=== PATIENT | male | born 1985 | race Caucasian/White ===

== ENCOUNTER 2021-02-14 01:53 | Outpatient (CLI) | payer MEDICAID, SELFPAY ==
--- NOTE | 2021-02-14 | DI.RAD_ITS ---
Exam(s) XR LUMBAR SPINE COMPLETE EXAM: XR LUMBAR SPINE COMPLETE CLINICAL HISTORY: LOW BACK PAIN, M54.5. TECHNIQUE: 2D digital imaging was performed. COMPARISON: No exams were available for comparison FINDINGS: There is no evidence of fracture, listhesis, or pars interarticularis defects. All the disc spaces e xhibit normal height. No scoliosis. Bone density normal. No osseous lesions. No obvious facet art hropathy. Sacroiliac joints appear unremarkable. IMPRESSION: No significant radiograph findings in the lumbosacral spine. DATA REPOSITORY: RADIATION DOSE DELIVERED:
--- NOTE | 2021-02-14 | DI.RAD_ITS ---
Exam(s) XR THORACIC SPINE COMPLETE EXAM: XR THORACIC SPINE COMPLETE CLINICAL HISTORY: THORACIC BACK PAIN, M54.9. TECHNIQUE: 2D digital imaging was performed. COMPARISON: No exams were available for comparison FINDINGS: There is no evidence of fracture nor listhesis. No scoliosis. No abnormal widening of the paraspina l lines. There is multilevel mild anterior osseous lipping but no prominent disc space narrowing. B one density is age-appropriate. No osseous lesions evident. IMPRESSION: No significant radiographic findings. No scoliosis. DATA REPOSITORY: RADIATION DOSE DELIVERED:
== END 2021-02-14 02:13 ==
PROVIDERS: Visit Provider Physician Assistant
DX: M54.6 Pain in thoracic spine (principal); M54.5 Low back pain
CPT/HCPCS: 72072; 72110

== ENCOUNTER 2023-05-28 07:50 | Emergency (ER) | payer MEDICAID, SELFPAY ==
[2023-05-28 07:52] VITALS: BP 139/82; PULSE 96; RESP 16; TEMP 37.1; O2SAT 99
[2023-05-28] MEDS: Ketorolac 15 MG/ML VIAL IM (08:15)
--- NOTE | 2023-05-28 08:36 | DI.RAD_ITS ---
Exam(s) XR FOOT RT COMPLETE EXAM: XR FOOT RT COMPLETE CLINICAL HISTORY: kicked dumpster, pain medial foreft c inversion. TECHNIQUE: 2D digital imaging was performed of the right foot. Three images were obtained. AP, obl ique and lateral views were obtained. COMPARISON: No exams were available for comparison FINDINGS: BONES: No acute fracture is present. No bony destructive lesion is seen. JOINTS: No dislocation present. SOFT TISSUE: Normal. IMPRESSION: Unremarkable radiographs of the right foot. DATA REPOSITORY: RADIATION DOSE DELIVERED:
--- NOTE | 2023-05-28 08:47 | ED.GENADUL_ITS ---
Discharge Plan Disposition Patient Disposition: Home Condition: Good Discharge Details Clinical Impression: Sprain Primary Care Provider: None,None ED Provider: Adore Larios Home Meds and New Rx's Prescriptions: No Action No Known Home Meds Discharge Instructions Instructions: Foot Sprain (ED) Additional Instructions: Take tylenol and ibuprofen over the counter as needed for pain. You can also use ice. Wear the foot immoblizer until your pain improves. Call your primary care doctor today to schedule an appointment to follow up on your visit here. Return to the emergency department for new or worsening symptoms. Stand Alone Forms: Work Release Referrals: Nia Mc [Emergency Nurse] - Medical Decision Making 37yo previously healthy male presenting with right foot pain after kicking dumpster. No numbness or tingling. Able to ambulate immediately afterwards but not current; has not taken OTC medications. Vital signs and physical exam reassuring, neurovascular intact, low suspicion for fracture but will eval with XR. Givem IM toradol for pain. XR independently reviewed, no displaced fracture on my view, agree with radiology read below. Placed in walking boot and dced home. Discharged home; discharge instructions including return precautions were reviewed with patient who verbalized understanding. All questions were answered and they are in full agreement with the plan. Imaging Data Radiologic Study: Imaging: X-Ray Radiologist's impression: IMPRESSION: Unremarkable radiographs of the right foot. HPI General Mode of arrival: ambulatory . Date/Time Provider Initiated Documentation: 05/28/23 08:03 . Limitations to Documentation: no limitations . Information obtained by: patient . HPI Narrative: 37yo previously healthy male presenting with right foot pain. Yesterday evening attempted to kick a raccoon, missed, and kicked dumpster. Able to walk after the event. Worsening right foot pain since then, now with difficutly ambulating. No numbness or tingling. Has been using ice at home, no OTC medications. He is otherwise in his usual state of health. Unsure last tetanus. Related Data Home Medications Medication Instructions Recorded Confirmed Unknown [No Known Home Meds] 05/28/23 05/28/23 Allergies Allergy/AdvReac Type Severity Reaction Status Date / Time No Known Allergies Allergy Unverified 05/28/23 07:57 General Stated Complaint: Orthopedic NICK: 4 Review of Systems Narrative: see HPI PFSH All Active Problems (Updated 05/28/23 @ 08:56 by Adore Larios MD) Sprain (Acute) Social History Smoking/Tobacco Use Status: Current every day Tobacco Type: cigarettes Smoking risk assessment performed?: Yes Alcohol Intake: current Alcohol Intake frequency: a few times a month Alcohol type: beer Substance use type: former substance user Housing: apartment Do you feel safe at home: Yes Do you feel safe in your relationship?: Yes Exam Narrative Exam Narrative: General: Alert, well appearing, well nourished, in no acute distress. Head: Normocephalic, atraumatic Neck: Trachea midline, Neck supple. Cardiac: No cyanosis. Resp: No respiratory distress. Speaking in full sentences. Abd: Non-distended. Extremities: No deformities. No peripheral edema. DP pulses present and symmetric. Right foot TTP medial aspect of forefoot, no bony tenderness. No swelling or echymosis. Pain with passive inversion, otherwise no significant pain with passive ROM. Neurologic: GCS 15. Moves all extremities freely against gravity Course Vital Signs Vital signs: Vital Signs Temperature 37.1 C 05/28/23 07:52 Pulse 96 H 05/28/23 07:52 Respiratory Rate 16 05/28/23 07:52 Blood Pressure 139/82 05/28/23 07:52 Pulse Oximetry 99 05/28/23 07:52 Temperature 37.1 C 05/28/23 07:52 Temperature Source Skin 05/28/23 07:52 Pulse 96 H 05/28/23 07:52 Respiratory Rate 16 05/28/23 07:52 Respiratory Effort Normal 05/28/23 07:57 Blood Pressure 139/82 05/28/23 07:52 Blood Pressure Position Sitting 05/28/23 07:52 Pulse Oximetry 99 05/28/23 07:52 Oxygen Delivery Method Room Air 05/28/23 07:52 Oxygen Flow Rate 0 05/28/23 07:52 Pain Level 5 05/28/23 08:15 Comment ice and elevation last night 05/28/23 07:52
== END 2023-05-28 10:08 | disposition home or self-care (01) ==
PROVIDERS: Emergency Provider Student in an Organized Health Care Education/Training Program
DX: W22.8XXA Striking against or struck by other objects, initial encounter; S93.601A Unspecified sprain of right foot, initial encounter
CPT/HCPCS: 29515; 96372; 99284; 73630; J1885